=== PATIENT | female | born 1965 | race Caucasian/White ===

== ENCOUNTER 2017-06-15 17:29 | Emergency (ER) | payer OTHER, MEDICAID ==
[2015-12-16 12:38] VITALS: BP 136/65
[~2017-06-15 17:29] MED LIST: ATOR40TA59 PO; BUDE10.22 IH; OMEP20CA9 PO; PROAIR HFA8.5 GM IH
== END 2017-06-15 19:07 | disposition left against medical advice (07) ==
LOC: ER 17:29
DX: R50.9 Fever, unspecified (principal); M79.1 Myalgia; Z53.21 Procedure and treatment not carried out due to patient leaving prior to being seen by health care provider

== ENCOUNTER → 2018-06-05 | Outpatient (CLI) | payer OTHER, MEDICAID | END | disposition home or self-care (01) | LOC: CT 13:36 | DX: Z12.2 Encounter for screening for malignant neoplasm of respiratory organs (principal); I25.10 Atherosclerotic heart disease of native coronary artery without angina pectoris; I70.0 Atherosclerosis of aorta; F17.200 Nicotine dependence, unspecified, uncomplicated; J44.9 Chronic obstructive pulmonary disease, unspecified; E78.00 Pure hypercholesterolemia, unspecified; K21.9 Gastro-esophageal reflux disease without esophagitis; R91.8 Other nonspecific abnormal finding of lung field | CPT/HCPCS: G0297 ==

== ENCOUNTER 2019-03-17 15:02 | Inpatient (IN) | payer OTHER, MEDICAID ==
[~2019-03-17] VITALS: Ht 162.6 cm; Wt 49.0 kg
[~2019-03-17 15:02] MED LIST changes: +ALBU2.5V8 IH; +OMEP20CA10 PO; -OMEP20CA9 PO; -PROAIR HFA8.5 GM IH
[2019-03-17] MEDS ORDERED: IPRATRPIUM/ALBUTEROL 0.5/2.5MG 3 ML NEBU. NEB ONE (15:45)
[2019-03-17] MEDS ORDERED: methylPREDNISolone SOD SUCC PF 125 MG/2 ML VIAL. IV ONE (15:45)
--- NOTE | 2019-03-17 16:03 | EKG ---
[facility] [address] [place] [address] Test Date: 2019-03-17 Test Time: 15:13:13 Pat Name: VICTOR HUGO MADDOX Department: Room: Gender: F Newspaper Editor Managing: : 1965 Requested By: JAYLENE SILVA Order Number: [id number] Reading MD: Micah Martinez MD Measurements Intervals [place] Rate: 70 P: 58 PA: 172 QRS: 65 QRSD: 80 T: 47 QT: 416 QTc: 452 Interpretive Statements SINUS RHYTHM CONSIDER ANTERIOR ISCHEMIA Electronically Signed On 04-11-2019 15:03:59 CDT by Micah Martinez MD
--- NOTE | 2019-03-17 16:08 | PHYS DOC ---
Past Medical History Past Medical History: Asthma, COPD, High Cholesterol (JAYLENE SILVA APRN) Past Surgical History: Tonsillectomy, Other Additional Past Surgical Histo: dental surgery (AJYLENE SILVA APRN) Additional Information: 0.5 PPD Alcohol Use: None Drug Use: None (JAYLENE SILVA APRN) Adult General Chief Complaint Chief Complaint: SHORTNESS OF BREATH HPI HPI Patient is a 53 year old female with history of asthma, COPD, hypertension, current smoker, who presents to the ED today complaining of shortness of breath and coughing for 4-5 days. Patient denies any fever. Denies any chest pain. Patient arrives in the ED with O2 sats at 82% on room air. She states she does not use oxygen at home. PCP Dr. Dumont (JAYLENE SILVA APRN) Review of Systems Review of Systems Constitutional: Denies fever or chills [] Eyes: Denies change in visual acuity, redness, or eye pain [] HENT: Denies nasal congestion or sore throat [] Respiratory: Reports cough and shortness of breath [] Cardiovascular: No additional information not addressed in HPI [] GI: Denies abdominal pain, nausea, vomiting, bloody stools or diarrhea [] : Denies dysuria or hematuria [] Musculoskeletal: Denies back pain or joint pain [] Integument: Denies rash or skin lesions [] Neurologic: Denies headache, focal weakness or sensory changes [] All other systems were reviewed and found to be within normal limits, except as documented in this note. (JAYLENE SILVA APRN) Current Medications Current Medications Current Medications Medications (Trade) Dose Ordered Sig/Jeff Start Time Stop Time Status Last Admin Dose Admin Albuterol/ Ipratropium (Duoneb) 3 ml 1X ONCE 03/17/19 15:45 03/17/19 15:46 DC 03/17/19 15:53 3 ML Methylprednisolone Sodium Succinate (SOLU-Medrol 125MG VIAL) 125 mg 1X ONCE 03/17/19 15:45 03/17/19 15:46 DC 03/17/19 15:50 125 MG (ALYSON FULLER DO) Allergies Allergies Allergies Coded Allergies Type Severity Reaction Last Updated Verified No Known Drug Allergies 12/16/15 No (ALYSON FULLER DO) Physical Exam Physical Exam Constitutional: Cachectic appearing patient, no acute distress, non-toxic appearance. [] HENT: Normocephalic, atraumatic, bilateral external ears normal, oropharynx moist, no oral exudates, nose normal. [] Eyes: PERRLA, EOMI, conjunctiva normal, no discharge. [] Neck: Normal range of motion, no tenderness, supple, no stridor. [] Cardiovascular:Heart rate regular rhythm, no murmur [] Lungs & Thorax: Diminished breath sounds, patient sitting in tripod position, was placed on oxygen on arrival to the ED due to O2 sats being 82% on room air. Abdomen: Bowel sounds normal, soft, no tenderness, no masses, no pulsatile masses. [] Skin: Warm, dry, no erythema, no rash. [] Back: No tenderness, no CVA tenderness. [] Extremities: No tenderness, no cyanosis, no clubbing, ROM intact, no edema. [] Neurologic: Alert and oriented X 3, normal motor function, normal sensory function, no focal deficits noted. [] Psychologic: Affect normal, judgement normal, mood normal. [] (JAYLENE SILVA APRN) Current Patient Data Vital Signs Vital Signs Date Time Temp Pulse Resp B/P (MAP) Pulse Ox O2 Delivery O2 Flow Rate FiO2 03/17/19 17:53 64 27 129/65 (86) 96 Nasal Cannula 2.0 03/17/19 15:05 98.0 98.0 (ALYSON FULLER DO) Lab Values Laboratory Tests Test 03/17/19 15:55 03/17/19 16:30 White Blood Count 8.7 x10^3/uL (4.0-11.0) Red Blood Count 4.71 x10^6/uL (3.50-5.40) Hemoglobin 14.9 g/dL (12.0-15.5) Hematocrit 44.8 % (36.0-47.0) Mean Corpuscular Volume 95 fL (79-100) Mean Corpuscular Hemoglobin 32 pg (25-35) Mean Corpuscular Hemoglobin Concent 33 g/dL (31-37) Red Cell Distribution Width 13.6 % (11.5-14.5) Platelet Count 281 x10^3/uL (140-400) Neutrophils (%) (Auto) 72 % (31-73) Lymphocytes (%) (Auto) 20 % (24-48) L Monocytes (%) (Auto) 6 % (0-9) Eosinophils (%) (Auto) 2 % (0-3) Basophils (%) (Auto) 1 % (0-3) Neutrophils # (Auto) 6.2 x10^3uL (1.8-7.7) Lymphocytes # (Auto) 1.8 x10^3/uL (1.0-4.8) Monocytes # (Auto) 0.5 x10^3/uL (0.0-1.1) Eosinophils # (Auto) 0.2 x10^3/uL (0.0-0.7) Basophils # (Auto) 0.0 x10^3/uL (0.0-0.2) Sodium Level 142 mmol/L (136-145) Potassium Level 3.9 mmol/L (3.5-5.1) Chloride Level 103 mmol/L (98-107) Carbon Dioxide Level 27 mmol/L (21-32) Anion Gap 12 (6-14) Blood Urea Nitrogen 12 mg/dL (7-20) Creatinine 0.8 mg/dL (0.6-1.0) Estimated GFR (Cockcroft-Gault) 74.5 BUN/Creatinine Ratio 15 (6-20) Glucose Level 107 mg/dL (70-99) H Lactic Acid Level 0.8 mmol/L (0.4-2.0) Calcium Level 8.8 mg/dL (8.5-10.1) Magnesium Level 2.0 mg/dL (1.8-2.4) Total Bilirubin 0.4 mg/dL (0.2-1.0) Aspartate Amino Transferase (AST) 23 U/L (15-37) Alanine Aminotransferase (ALT) 28 U/L (14-59) Alkaline Phosphatase 92 U/L (46-116) Creatine Kinase 72 U/L (26-192) Creatine Kinase MB (Mass) 1.4 ng/mL (0.0-3.6) Creatine Kinase MB Relative Index % (0-4) Troponin I Quantitative 0.020 ng/mL (0.000-0.055) DX-Aos-U-Type Natriuretic Peptide 143 pg/mL (0-124) H Total Protein 7.0 g/dL (6.4-8.2) Albumin 3.6 g/dL (3.4-5.0) Albumin/Globulin Ratio 1.1 (1.0-1.7) Thyroid Stimulating Hormone (TSH) 5.393 uIU/mL (0.358-3.74) H Urine Opiates Screen Neg (NEG) Urine Methadone Screen Neg (NEG) Urine Barbiturates Neg (NEG) Urine Phencyclidine Screen Neg (NEG) Urine Amphetamine/Methamphetamine Neg (NEG) Urine Benzodiazepines Screen Neg (NEG) Urine Cocaine Screen Neg (NEG) Urine Cannabinoids Screen Neg (NEG) Urine Ethyl Alcohol Neg (NEG) Laboratory Tests 03/17/19 15:55 Laboratory Tests 03/17/19 15:55 Microbiology 03/17/19 Blood Culture - Preliminary, Resulted NO GROWTH AFTER 1 DAY (ALYSON FULLER DO) Lab Values Laboratory Tests Test 03/17/19 15:55 03/17/19 16:30 White Blood Count 8.7 x10^3/uL (4.0-11.0) Red Blood Count 4.71 x10^6/uL (3.50-5.40) Hemoglobin 14.9 g/dL (12.0-15.5) Hematocrit 44.8 % (36.0-47.0) Mean Corpuscular Volume 95 fL (79-100) Mean Corpuscular Hemoglobin 32 pg (25-35) Mean Corpuscular Hemoglobin Concent 33 g/dL (31-37) Red Cell Distribution Width 13.6 % (11.5-14.5) Platelet Count 281 x10^3/uL (140-400) Neutrophils (%) (Auto) 72 % (31-73) Lymphocytes (%) (Auto) 20 % (24-48) L Monocytes (%) (Auto) 6 % (0-9) Eosinophils (%) (Auto) 2 % (0-3) Basophils (%) (Auto) 1 % (0-3) Neutrophils # (Auto) 6.2 x10^3uL (1.8-7.7) Lymphocytes # (Auto) 1.8 x10^3/uL (1.0-4.8) Monocytes # (Auto) 0.5 x10^3/uL (0.0-1.1) Eosinophils # (Auto) 0.2 x10^3/uL (0.0-0.7) Basophils # (Auto) 0.0 x10^3/uL (0.0-0.2) Sodium Level 142 mmol/L (136-145) Potassium Level 3.9 mmol/L (3.5-5.1) Chloride Level 103 mmol/L (98-107) Carbon Dioxide Level 27 mmol/L (21-32) Anion Gap 12 (6-14) Blood Urea Nitrogen 12 mg/dL (7-20) Creatinine 0.8 mg/dL (0.6-1.0) Estimated GFR (Cockcroft-Gault) 74.5 BUN/Creatinine Ratio 15 (6-20) Glucose Level 107 mg/dL (70-99) H Lactic Acid Level 0.8 mmol/L (0.4-2.0) Calcium Level 8.8 mg/dL (8.5-10.1) Magnesium Level 2.0 mg/dL (1.8-2.4) Total Bilirubin 0.4 mg/dL (0.2-1.0) Aspartate Amino Transferase (AST) 23 U/L (15-37) Alanine Aminotransferase (ALT) 28 U/L (14-59) Alkaline Phosphatase 92 U/L (46-116) Creatine Kinase 72 U/L (26-192) Creatine Kinase MB (Mass) 1.4 ng/mL (0.0-3.6) Creatine Kinase MB Relative Index % (0-4) Troponin I Quantitative 0.020 ng/mL (0.000-0.055) MO-Cio-J-Type Natriuretic Peptide 143 pg/mL (0-124) H Total Protein 7.0 g/dL (6.4-8.2) Albumin 3.6 g/dL (3.4-5.0) Albumin/Globulin Ratio 1.1 (1.0-1.7) Thyroid Stimulating Hormone (TSH) 5.393 uIU/mL (0.358-3.74) H Urine Opiates Screen Neg (NEG) Urine Methadone Screen Neg (NEG) Urine Barbiturates Neg (NEG) Urine Phencyclidine Screen Neg (NEG) Urine Amphetamine/Methamphetamine Neg (NEG) Urine Benzodiazepines Screen Neg (NEG) Urine Cocaine Screen Neg (NEG) Urine Cannabinoids Screen Neg (NEG) Urine Ethyl Alcohol Neg (NEG) Laboratory Tests 03/17/19 15:55 Laboratory Tests 03/17/19 15:55 (JAYLENE SILVA APRN) EKG EKG 15:[address] Fuller sinus rhythm HR 70 no STEMI[] (JAYLENE SILVA APRN) Radiology/Procedures Radiology/Procedures []PROCEDURE: PORTABLE CHEST 1V AP portable chest radiograph 03/17/2019 Clinical History: Shortness of breath and cough. An AP erect portable digital radiograph of the chest was obtained. The cardiac silhouette is normal in size. Atherosclerotic calcification of the thoracic aorta is seen. The thoracic aorta is minimally tortuous. No acute pulmonary infiltrate is noted. No pneumothorax or pleural effusion is seen. Degenerative changes are seen involving the thoracic spine. IMPRESSION: No acute abnormality is seen. Electronically signed by: Jan Barber MD (03/17/2019 4:43 PM) [facility] DICTATED and SIGNED BY: JAN BARBER MD DATE: 03/17/191642 (JAYLENE SILVA APRN) Course & Med Decision Making Course & Med Decision Making Pertinent Labs and Imaging studies reviewed. (See chart for details) This is a 53-year-old female patient presenting to the ED today with cough or shortness of breath for 4-5 days. Patient has history of COPD and is a current smoker. On arrival to the ED she was hypoxic with O2 sats at 82% on room air, she was placed on oxygen 2 L, O2 sats 95% on room air. She was given a DuoNeb treatment as well. Given Solu-Medrol, feeling better, unfortunately her O2 sats remained below 90% on room air. Her labs are negative, chest x-ray is negative, EKG is negative, Consulted with Dr. Suzy Dumont who accepted patient for admission Routine consult placed for wallcovering hanger considering her hypoxia. Encouraged patient to consider smoking cessation (JAYLENE SILVA APRN) Dragon Disclaimer Dragon Disclaimer This electronic medical record was generated, in whole or in part, using a voice recognition dictation system. (JAYLENE SILVA APRN) Departure Departure Impression: Primary Impression: COPD exacerbation Additional Impressions: Smoking addiction Hypoxia Disposition: ADMITTED INPATIENT Condition: STABLE Referrals: SUZY DUMONT MD (PCP) Attending Signature Attending Signature I have reviewed the PA/FLOUR MIXER's note and plan of care. I was available for consultation as needed during the patient's visit in the emergency department. I agree with the clinical impression, plan, and disposition. (ALYSON FULLER DO) Problem Qualifiers JAYLENE SILVA BANKER MASON March 17, 2019 16:08 ALYSON FULLER DO March 19, 2019 01:52
[2019-03-17 16:14] LABS: BASO % 1 % (0-3); EOS # 0.2 x10^3/uL (0.0-0.7); EOS % 2 % (0-3); HEMATOCRIT 44.8 % (36.0-47.0); HEMOGLOBIN 14.9 g/dL (12.0-15.5); LYMPH # 1.8 x10^3/uL (1.0-4.8); LYMPH % 20 % (24-48); MEAN CORPUSCULAR HEMOGLOBIN 32 pg (25-35); MEAN CORPUSCULAR HGB CONC 33 g/dL (31-37); MEAN CORPUSCULAR VOLUME 95 fL (79-100); MONO # 0.5 x10^3/uL (0.0-1.1); MONO % 6 % (0-9); NEUT # 6.2 x10^3uL (1.8-7.7); NEUT % 72 % (31-73); PLATELET COUNT 281 x10^3/uL (140-400); RED BLOOD COUNT 4.71 x10^6/uL (3.50-5.40); RED CELL DISTRIBUTION WIDTH 13.6 % (11.5-14.5); WHITE BLOOD COUNT 8.7 x10^3/uL (4.0-11.0)
[2019-03-17 16:25] LABS: CALCIUM 8.8 mg/dL (8.5-10.1); CREATININE 0.8 mg/dL (0.6-1.0); GFR 74.5; POTASSIUM 3.9 mmol/L (3.5-5.1)
[2019-03-17 16:38] LABS: CREATINE KINASE 72 U/L (26-192)
[2019-03-17 16:39] LABS: ALBUMIN 3.6 g/dL (3.4-5.0); ALBUMIN/GLOBULIN RATIO 1.1 (1.0-1.7); TOTAL BILIRUBIN 0.4 mg/dL (0.2-1.0)
--- NOTE | 2019-03-17 16:45 | RAD ---
AP portable chest radiograph 03/17/2019 Clinical History: Shortness of breath and cough. An AP erect portable digital radiograph of the chest was obtained. The cardiac silhouette is normal in size. Atherosclerotic calcification of the thoracic aorta is seen. The thoracic aorta is minimally tortuous. No acute pulmonary infiltrate is noted. No pneumothorax or pleural effusion is seen. Degenerative changes are seen involving the thoracic spine. IMPRESSION: No acute abnormality is seen. Electronically signed by: Jan Barber MD (03/17/2019 4:43 PM) [facility]
[2019-03-17 16:47] LABS: BARBITURATES NEG (NEG); BENZODIAZEPINES NEG (NEG); CANNABINOIDS NEG (NEG); COCAINE NEG (NEG); METHADONE NEG (NEG); OPIATES NEG (NEG); PHENCYCLIDINE NEG (NEG)
[2019-03-17 16:48] LABS: AMPHETAMINE/METHAMPHETAMINE NEG (NEG)
[2019-03-17] MEDS ORDERED: ONDANSETRON PF 4 MG/2 ML VIAL. IV PRN (18:30)
[2019-03-17] MEDS ORDERED: MORPHINE SULFATE 2 MG/ML VIAL. IV PRN (18:30)
--- NOTE | 2019-03-17 19:00 | NUR ---
The patient, VICTOR HUGO MADDOX, 53 y/o, F admitted by SUZY DUMONT MD, was given written information regarding hospital policies, unit procedures and contact persons. Valuables were checked and left in the room.
[2019-03-17 19:30] VITALS: BP 123/66
[2019-03-17] MEDS ORDERED: IPRATRPIUM/ALBUTEROL 0.5/2.5MG 3 ML NEBU. NEB SCH (20:00)
[2019-03-17] MEDS: methylPREDNISolone SOD SUCC PF 40 MG/ML VIAL. IV SCH (21:31)
[2019-03-17] MEDS: ACETAMINOPHEN 325 MG TABLET. PO PRN (21:31)
[2019-03-17 23:00] VITALS: BP 102/46
[2019-03-18 03:02] VITALS: BP 124/63
[2019-03-18 05:11] LABS: BASO % 0 % (0-3); EOS % 0 % (0-3); HEMATOCRIT 42.9 % (36.0-47.0); HEMOGLOBIN 14.4 g/dL (12.0-15.5); LYMPH # 0.5 x10^3/uL (1.0-4.8); LYMPH % 12 % (24-48); MEAN CORPUSCULAR HEMOGLOBIN 32 pg (25-35); MEAN CORPUSCULAR HGB CONC 34 g/dL (31-37); MEAN CORPUSCULAR VOLUME 95 fL (79-100); MONO % 1 % (0-9); NEUT # 3.7 x10^3uL (1.8-7.7); NEUT % 87 % (31-73); PLATELET COUNT 284 x10^3/uL (140-400); RED BLOOD COUNT 4.53 x10^6/uL (3.50-5.40); RED CELL DISTRIBUTION WIDTH 13.7 % (11.5-14.5); WHITE BLOOD COUNT 4.2 x10^3/uL (4.0-11.0)
[2019-03-18 05:43] LABS: CALCIUM 8.7 mg/dL (8.5-10.1); CREATININE 0.8 mg/dL (0.6-1.0); GFR 74.5; POTASSIUM 4.1 mmol/L (3.5-5.1)
[2019-03-18 07:00] VITALS: BP 119/63
[2019-03-18] MEDS: ACETAMINOPHEN 325 MG TABLET. PO PRN ×3 (07:24→21:26)
[2019-03-18] MEDS: IPRATRPIUM/ALBUTEROL 0.5/2.5MG 3 ML NEBU. NEB SCH ×4 (07:46→19:32)
[2019-03-18 07:51] LABS: % LYMPHS 11 % (24-48); % MONOS 1 % (0-10); % SEGS 88 % (35-66)
[2019-03-18 07:52] LABS: PLT ESTIMATE ADEQUATE (ADEQUATE)
--- NOTE | 2019-03-18 08:33 | PDOC ---
Provider Note Provider Note [id number] SUZY DUMONT MD March 18, 2019 08:33
--- NOTE | 2019-03-18 08:48 | HP ---
ADMIT DATE: 03/17/2019 CHIEF COMPLAINT: Dyspnea and productive cough. HISTORY OF PRESENT ILLNESS: A 53-year-old white female who has had COPD for a number of years and uses Advair and Incruse at home. She is not on oxygen at home. She had increasing shortness of breath with some clear and green sputum production and came to the ER. X-ray was clear. Labs were normal, and she is feeling better on oxygen and IV steroids at this point. MEDICATIONS: She takes atorvastatin along with Incruse and Advair. ALLERGIES: No allergies. No cardiovascular history of any type. PAST SURGICAL HISTORY: She has had a tonsillectomy. SOCIAL HISTORY: She has smoked most of her adult life. She lives with her niece. She is not employed. States she is a nondrinker. FAMILY HISTORY: Unremarkable. Both parents are . REVIEW OF SYSTEMS: Unremarkable. OBJECTIVE: ENT: Unremarkable. NECK: No masses, nodes or bruits. LUNGS: Decreased breath sounds, diffuse scattered expiratory wheezes. No tachypnea. CARDIOVASCULAR: Regular rate. No tachycardia. ABDOMEN: Obese, soft and nontender. EXTREMITIES: Unremarkable except for reduced pedal pulses bilaterally. Nail beds are slightly clogged and mildly cyanotic. NEUROLOGIC: Physiologic and nonfocal. ASSESSMENT: Chronic obstructive pulmonary disease with chronic tobacco abuse and acute exacerbation. She has some sort of genetic developmental delay present as well. PLAN: We will add Nicoderm patch to current regimen of DuoNeb and IV steroids. Sputum culture to be obtained and then assessment for need of home oxygen as well. SUZY DUMONT MD DR: NOLBERTO/nts JOB#: [id number] / [id number]
[2019-03-18] MEDS: NICOTINE 14MG PATCH. TD SCH (08:50)
[2019-03-18] MEDS: ATORVASTATIN CALCIUM 40 MG TABLET. PO SCH (08:50)
[2019-03-18] MEDS: FAMOTIDINE 20 MG TABLET. PO SCH ×2 (08:50→21:22)
[2019-03-18] MEDS: methylPREDNISolone SOD SUCC PF 40 MG/ML VIAL. IV SCH ×2 (08:53→21:23)
[2019-03-18 10:57] VITALS: BP 122/52
[2019-03-18 15:00] VITALS: BP 119/52
--- NOTE | 2019-03-18 15:01 | NUR ---
SW following pt for anticipated dc needs. Chart reviewed. Pt lives at home with family. No dc recommendation or SW needs noted at this time. Will continue to follow.
--- NOTE | 2019-03-18 16:42 | PDOC ---
PULMONARY PROGRESS NOTES Vitals Vital Signs Date Time Temp Pulse Resp B/P (MAP) Pulse Ox O2 Delivery O2 Flow Rate FiO2 03/18/19 15:38 90 Nasal Cannula 2.0 03/18/19 15:00 97.6 79 16 119/52 (74) 97.6 Labs Laboratory Tests Test 03/17/19 15:55 03/17/19 16:30 03/18/19 04:05 White Blood Count 8.7 x10^3/uL (4.0-11.0) 4.2 x10^3/uL (4.0-11.0) Red Blood Count 4.71 x10^6/uL (3.50-5.40) 4.53 x10^6/uL (3.50-5.40) Hemoglobin 14.9 g/dL (12.0-15.5) 14.4 g/dL (12.0-15.5) Hematocrit 44.8 % (36.0-47.0) 42.9 % (36.0-47.0) Mean Corpuscular Volume 95 fL (79-100) 95 fL (79-100) Mean Corpuscular Hemoglobin 32 pg (25-35) 32 pg (25-35) Mean Corpuscular Hemoglobin Concent 33 g/dL (31-37) 34 g/dL (31-37) Red Cell Distribution Width 13.6 % (11.5-14.5) 13.7 % (11.5-14.5) Platelet Count 281 x10^3/uL (140-400) 284 x10^3/uL (140-400) Neutrophils (%) (Auto) 72 % (31-73) 87 % (31-73) Lymphocytes (%) (Auto) 20 % (24-48) 12 % (24-48) Monocytes (%) (Auto) 6 % (0-9) 1 % (0-9) Eosinophils (%) (Auto) 2 % (0-3) 0 % (0-3) Basophils (%) (Auto) 1 % (0-3) 0 % (0-3) Neutrophils # (Auto) 6.2 x10^3uL (1.8-7.7) 3.7 x10^3uL (1.8-7.7) Lymphocytes # (Auto) 1.8 x10^3/uL (1.0-4.8) 0.5 x10^3/uL (1.0-4.8) Monocytes # (Auto) 0.5 x10^3/uL (0.0-1.1) 0.0 x10^3/uL (0.0-1.1) Eosinophils # (Auto) 0.2 x10^3/uL (0.0-0.7) 0.0 x10^3/uL (0.0-0.7) Basophils # (Auto) 0.0 x10^3/uL (0.0-0.2) 0.0 x10^3/uL (0.0-0.2) Sodium Level 142 mmol/L (136-145) 139 mmol/L (136-145) Potassium Level 3.9 mmol/L (3.5-5.1) 4.1 mmol/L (3.5-5.1) Chloride Level 103 mmol/L (98-107) 103 mmol/L (98-107) Carbon Dioxide Level 27 mmol/L (21-32) 27 mmol/L (21-32) Anion Gap 12 (6-14) 9 (6-14) Blood Urea Nitrogen 12 mg/dL (7-20) 17 mg/dL (7-20) Creatinine 0.8 mg/dL (0.6-1.0) 0.8 mg/dL (0.6-1.0) Estimated GFR (Cockcroft-Gault) 74.5 74.5 BUN/Creatinine Ratio 15 (6-20) Glucose Level 107 mg/dL (70-99) 145 mg/dL (70-99) Lactic Acid Level 0.8 mmol/L (0.4-2.0) Calcium Level 8.8 mg/dL (8.5-10.1) 8.7 mg/dL (8.5-10.1) Magnesium Level 2.0 mg/dL (1.8-2.4) Total Bilirubin 0.4 mg/dL (0.2-1.0) Aspartate Amino Transf (AST/SGOT) 23 U/L (15-37) Alanine Aminotransferase (ALT/SGPT) 28 U/L (14-59) Alkaline Phosphatase 92 U/L (46-116) Creatine Kinase 72 U/L (26-192) Creatine Kinase MB (Mass) 1.4 ng/mL (0.0-3.6) Creatine Kinase MB Relative Index % (0-4) Troponin I Quantitative 0.020 ng/mL (0.000-0.055) LD-Xpn-A-Type Natriuretic Peptide 143 pg/mL (0-124) Total Protein 7.0 g/dL (6.4-8.2) Albumin 3.6 g/dL (3.4-5.0) Albumin/Globulin Ratio 1.1 (1.0-1.7) Thyroid Stimulating Hormone (TSH) 5.393 uIU/mL (0.358-3.74) Urine Opiates Screen Neg (NEG) Urine Methadone Screen Neg (NEG) Urine Barbiturates Neg (NEG) Urine Phencyclidine Screen Neg (NEG) Urine Amphetamine/Methamphetamine Neg (NEG) Urine Benzodiazepines Screen Neg (NEG) Urine Cocaine Screen Neg (NEG) Urine Cannabinoids Screen Neg (NEG) Urine Ethyl Alcohol Neg (NEG) Segmented Neutrophils % 88 % (35-66) Lymphocytes % 11 % (24-48) Monocytes % 1 % (0-10) Platelet Estimate Adequate (ADEQUATE) Laboratory Tests Test 03/18/19 04:05 White Blood Count 4.2 x10^3/uL (4.0-11.0) Red Blood Count 4.53 x10^6/uL (3.50-5.40) Hemoglobin 14.4 g/dL (12.0-15.5) Hematocrit 42.9 % (36.0-47.0) Mean Corpuscular Volume 95 fL (79-100) Mean Corpuscular Hemoglobin 32 pg (25-35) Mean Corpuscular Hemoglobin Concent 34 g/dL (31-37) Red Cell Distribution Width 13.7 % (11.5-14.5) Platelet Count 284 x10^3/uL (140-400) Neutrophils (%) (Auto) 87 % (31-73) Lymphocytes (%) (Auto) 12 % (24-48) Monocytes (%) (Auto) 1 % (0-9) Eosinophils (%) (Auto) 0 % (0-3) Basophils (%) (Auto) 0 % (0-3) Neutrophils # (Auto) 3.7 x10^3uL (1.8-7.7) Lymphocytes # (Auto) 0.5 x10^3/uL (1.0-4.8) Monocytes # (Auto) 0.0 x10^3/uL (0.0-1.1) Eosinophils # (Auto) 0.0 x10^3/uL (0.0-0.7) Basophils # (Auto) 0.0 x10^3/uL (0.0-0.2) Segmented Neutrophils % 88 % (35-66) Lymphocytes % 11 % (24-48) Monocytes % 1 % (0-10) Platelet Estimate Adequate (ADEQUATE) Sodium Level 139 mmol/L (136-145) Potassium Level 4.1 mmol/L (3.5-5.1) Chloride Level 103 mmol/L (98-107) Carbon Dioxide Level 27 mmol/L (21-32) Anion Gap 9 (6-14) Blood Urea Nitrogen 17 mg/dL (7-20) Creatinine 0.8 mg/dL (0.6-1.0) Estimated GFR (Cockcroft-Gault) 74.5 Glucose Level 145 mg/dL (70-99) Calcium Level 8.7 mg/dL (8.5-10.1) Medications Active Scripts Medications Dose Route/Sig Max Daily Dose Days Date Category Symbicort 80-4.5 Mcg Inhaler (Budesonide/Formoterol Fumarate) 10.2 Gm Hfa.aer.ad 2 Puff IH BID 07/22/15 Reported Proair Hfa Inhaler (Albuterol Sulfate) 8.5 Gm Hfa.aer.ad 2 Puff IH PRN Q4-6HRS 07/22/15 Reported Atorvastatin Calcium 40 Mg Tablet 1 Tab PO DAILY 07/22/15 Reported Impression . dictated aecopd hypoxemia agree with current rx thanks EDNA AMAYA MD March 18, 2019 16:42
[2019-03-18 19:00] VITALS: BP 105/56
[2019-03-18] MEDS: DOXYCYCLINE HYCLATE 100 MG TABLET PO SCH (21:22)
[2019-03-18] MEDS: HEPARIN for SUB-Q USE 5,000 UNIT/ML VIAL. SQ SCH (21:29)
[2019-03-18 22:59] VITALS: BP 119/64
--- NOTE | 2019-03-19 02:33 | CONS ---
DATE OF CONSULTATION: 03/18/2019 ATTENDING PHYSICIAN: Cosmo Garcia M.D. CONSULTING PHYSICIAN: Edna Amaya M.D. REASON FOR CONSULTATION: The patient is seen in Pulmonary consultation at the request of Dr. Garcia for acute respiratory distress. HISTORY OF PRESENT ILLNESS: The patient is a 53-year-old with a history of COPD, questionable asthma component, hypertension and current smoker, who presented with increasing shortness of breath over the last 2-3 days, coughing up some green sputum. She was unable to complete full sentences at times. She presented to the Emergency Room Department and found to have new O2 saturation of 82% on room air. She was admitted and I was asked to see her in consultation. She does not wear oxygen at home. PAST MEDICAL HISTORY: Tobacco dependence, COPD, questionable asthma component, hyperlipidemia and tonsillectomy. PAST SURGICAL HISTORY: Previous dental surgery. REVIEW OF SYSTEMS: CONSTITUTIONAL: No fever or chills. EYES: No change in visual acuity. HENT: No nasal congestion or sore throat. PULMONARY: As indicated above. CARDIOVASCULAR: No chest pain or pressure. GASTROINTESTINAL: No nausea, vomiting or diarrhea. GENITOURINARY: No dysuria or frequency. MUSCULOSKELETAL: No localized muscle aches or joint pains. SKIN: No new skin lesions. NEUROLOGIC: No headaches, diplopia or blurred vision. FAMILY HISTORY: No family history of early emphysema or lung cancer. SOCIAL HISTORY: Socially, she smokes. Denies any excessive alcohol intake. MEDICATIONS: Home medication list was reviewed. She utilizes Advair and Incruse. PHYSICAL EXAMINATION: VITAL SIGNS: On examination, room air saturation was 82%, currently on 2 liters. HEENT: Eyes, the sclerae were nonicteric. NECK: Jugular venous distention was not elevated. No lymphadenopathy. CHEST: Full expansion. LUNGS: Poor airway flow with expiratory wheeze, some scattered rhonchi. CARDIOVASCULAR EXAMINATION: Regular rate and rhythm with S1, S2. No S3. ABDOMEN: Soft, nontender and nondistended. EXTREMITIES: No clubbing, cyanosis or pitting edema. NEUROLOGIC: The patient was awake, alert, following commands. A detailed neuro exam was not performed. LABORATORY DATA: White count was normal. Hemoglobin and hematocrit were noted. Electrolytes were noted. TSH was elevated. Toxicology screen was negative. Chest x-ray was reviewed, hyperinflation, no acute infiltrates. IMPRESSION: 1. Acute hypoxemic respiratory failure. The patient found to have O2 sat on room air of 82%. 2. Acute exacerbation of chronic obstructive pulmonary disease. 3. Tobacco dependent. 4. Hyperlipidemia. PLAN: 1. The patient admitted with supplemental oxygen. O2 saturation on room air was 82%. The patient was having difficulty completing full sentences. 2. Continue steroids. 3. Add doxycycline for acute nonspecific bronchitis. 4. Nebulized treatments. 5. DVT prophylaxis. 6. The patient instructed on the importance of discontinuing tobacco use. 7. A 6-minute walk prior to discharge. I do appreciate the privilege in sharing in the patient's care. EDNA AMAYA MD DR: JANEEN/thanh JOB#: [id number] / [id number]
[2019-03-19 02:41] VITALS: BP 128/72
[2019-03-19] MEDS: HEPARIN for SUB-Q USE 5,000 UNIT/ML VIAL. SQ SCH ×3 (06:20→20:38)
[2019-03-19 07:00] VITALS: BP 119/64
--- NOTE | 2019-03-19 08:22 | PDOC ---
Provider Note Provider Note feels better, no temp, still diffuse exp wheezes- labs ok, sputum cult pending- cont iv steroids/duoneb- NEEDS TO BE IN HOSPITAL SUZY DUMONT MD March 19, 2019 08:22
[2019-03-19] MEDS: IPRATRPIUM/ALBUTEROL 0.5/2.5MG 3 ML NEBU. NEB SCH ×4 (08:39→21:00)
[2019-03-19] MEDS: ATORVASTATIN CALCIUM 40 MG TABLET. PO SCH (09:18)
[2019-03-19] MEDS: FAMOTIDINE 20 MG TABLET. PO SCH ×2 (09:18→20:30)
[2019-03-19] MEDS: methylPREDNISolone SOD SUCC PF 40 MG/ML VIAL. IV SCH ×2 (09:19→20:29)
[2019-03-19] MEDS: NICOTINE 14MG PATCH. TD SCH (09:22)
[2019-03-19] MEDS: DOXYCYCLINE HYCLATE 100 MG TABLET PO SCH ×2 (09:22→20:30)
[2019-03-19] MEDS: ACETAMINOPHEN 325 MG TABLET. PO PRN ×2 (09:27→22:14)
[2019-03-19 10:46] VITALS: BP 101/48
[2019-03-19] MEDS ORDERED: ONDANSETRON PF 4 MG/2 ML VIAL. ONE (12:57)
--- NOTE | 2019-03-19 13:57 | PDOC ---
PULMONARY PROGRESS NOTES Subjective LESS SOA Vitals Vital Signs Date Time Temp Pulse Resp B/P (MAP) Pulse Ox O2 Delivery O2 Flow Rate FiO2 03/19/19 12:50 93 Nasal Cannula 2.0 03/19/19 10:46 97.5 73 18 101/48 (65) 97.5 General: Alert, No acute distress Lungs: Clear Cardiovascular: S1 Abdomen: Soft Neuro Exam: Alert Extremities: No Edema Skin: Warm Labs Laboratory Tests Test 03/17/19 15:55 03/17/19 16:30 03/18/19 04:05 White Blood Count 8.7 x10^3/uL (4.0-11.0) 4.2 x10^3/uL (4.0-11.0) Red Blood Count 4.71 x10^6/uL (3.50-5.40) 4.53 x10^6/uL (3.50-5.40) Hemoglobin 14.9 g/dL (12.0-15.5) 14.4 g/dL (12.0-15.5) Hematocrit 44.8 % (36.0-47.0) 42.9 % (36.0-47.0) Mean Corpuscular Volume 95 fL (79-100) 95 fL (79-100) Mean Corpuscular Hemoglobin 32 pg (25-35) 32 pg (25-35) Mean Corpuscular Hemoglobin Concent 33 g/dL (31-37) 34 g/dL (31-37) Red Cell Distribution Width 13.6 % (11.5-14.5) 13.7 % (11.5-14.5) Platelet Count 281 x10^3/uL (140-400) 284 x10^3/uL (140-400) Neutrophils (%) (Auto) 72 % (31-73) 87 % (31-73) Lymphocytes (%) (Auto) 20 % (24-48) 12 % (24-48) Monocytes (%) (Auto) 6 % (0-9) 1 % (0-9) Eosinophils (%) (Auto) 2 % (0-3) 0 % (0-3) Basophils (%) (Auto) 1 % (0-3) 0 % (0-3) Neutrophils # (Auto) 6.2 x10^3uL (1.8-7.7) 3.7 x10^3uL (1.8-7.7) Lymphocytes # (Auto) 1.8 x10^3/uL (1.0-4.8) 0.5 x10^3/uL (1.0-4.8) Monocytes # (Auto) 0.5 x10^3/uL (0.0-1.1) 0.0 x10^3/uL (0.0-1.1) Eosinophils # (Auto) 0.2 x10^3/uL (0.0-0.7) 0.0 x10^3/uL (0.0-0.7) Basophils # (Auto) 0.0 x10^3/uL (0.0-0.2) 0.0 x10^3/uL (0.0-0.2) Sodium Level 142 mmol/L (136-145) 139 mmol/L (136-145) Potassium Level 3.9 mmol/L (3.5-5.1) 4.1 mmol/L (3.5-5.1) Chloride Level 103 mmol/L (98-107) 103 mmol/L (98-107) Carbon Dioxide Level 27 mmol/L (21-32) 27 mmol/L (21-32) Anion Gap 12 (6-14) 9 (6-14) Blood Urea Nitrogen 12 mg/dL (7-20) 17 mg/dL (7-20) Creatinine 0.8 mg/dL (0.6-1.0) 0.8 mg/dL (0.6-1.0) Estimated GFR (Cockcroft-Gault) 74.5 74.5 BUN/Creatinine Ratio 15 (6-20) Glucose Level 107 mg/dL (70-99) 145 mg/dL (70-99) Lactic Acid Level 0.8 mmol/L (0.4-2.0) Calcium Level 8.8 mg/dL (8.5-10.1) 8.7 mg/dL (8.5-10.1) Magnesium Level 2.0 mg/dL (1.8-2.4) Total Bilirubin 0.4 mg/dL (0.2-1.0) Aspartate Amino Transf (AST/SGOT) 23 U/L (15-37) Alanine Aminotransferase (ALT/SGPT) 28 U/L (14-59) Alkaline Phosphatase 92 U/L (46-116) Creatine Kinase 72 U/L (26-192) Creatine Kinase MB (Mass) 1.4 ng/mL (0.0-3.6) Creatine Kinase MB Relative Index % (0-4) Troponin I Quantitative 0.020 ng/mL (0.000-0.055) ZE-Hpi-J-Type Natriuretic Peptide 143 pg/mL (0-124) Total Protein 7.0 g/dL (6.4-8.2) Albumin 3.6 g/dL (3.4-5.0) Albumin/Globulin Ratio 1.1 (1.0-1.7) Thyroid Stimulating Hormone (TSH) 5.393 uIU/mL (0.358-3.74) Urine Opiates Screen Neg (NEG) Urine Methadone Screen Neg (NEG) Urine Barbiturates Neg (NEG) Urine Phencyclidine Screen Neg (NEG) Urine Amphetamine/Methamphetamine Neg (NEG) Urine Benzodiazepines Screen Neg (NEG) Urine Cocaine Screen Neg (NEG) Urine Cannabinoids Screen Neg (NEG) Urine Ethyl Alcohol Neg (NEG) Segmented Neutrophils % 88 % (35-66) Lymphocytes % 11 % (24-48) Monocytes % 1 % (0-10) Platelet Estimate Adequate (ADEQUATE) Medications Active Scripts Medications Dose Route/Sig Max Daily Dose Days Date Category Symbicort 80-4.5 Mcg Inhaler (Budesonide/Formoterol Fumarate) 10.2 Gm Hfa.aer.ad 2 Puff IH BID 07/22/15 Reported Proair Hfa Inhaler (Albuterol Sulfate) 8.5 Gm Hfa.aer.ad 2 Puff IH PRN Q4-6HRS 07/22/15 Reported Atorvastatin Calcium 40 Mg Tablet 1 Tab PO DAILY 07/22/15 Reported Impression . 1. Acute hypoxemic respiratory failure. The patient found to have O2 sat on room air of 82%. 2. Acute exacerbation of chronic obstructive pulmonary disease. 3. Tobacco dependent. 4. Hyperlipidemia. 5. clear cxr Plan . 1. better, on o2 2. Continue steroids. 3. doxycycline for acute nonspecific bronchitis. 4. Nebulized treatments. 5. DVT prophylaxis. 6. The patient instructed on the importance of discontinuing tobacco use. 7. A 6-minute walk prior to discharge. possible dc in MARTHA Borjas MD March 19, 2019 13:57
[2019-03-19 14:48] VITALS: BP 103/59
[2019-03-19 19:00] VITALS: BP 134/59
[2019-03-19] MEDS: LACTOBACILLUS RHAMNOSUS GG 1 CAPSULE. PO SCH (20:30)
[2019-03-19 23:00] VITALS: BP 138/67
[2019-03-20 02:45] VITALS: BP 121/61
[2019-03-20] MEDS: HEPARIN for SUB-Q USE 5,000 UNIT/ML VIAL. SQ SCH (05:44)
[2019-03-20 07:00] VITALS: BP 129/68
[2019-03-20] MEDS: IPRATRPIUM/ALBUTEROL 0.5/2.5MG 3 ML NEBU. NEB SCH ×3 (07:24→15:31)
[2019-03-20] MEDS: ACETAMINOPHEN 325 MG TABLET. PO PRN ×2 (07:34→19:49)
--- NOTE | 2019-03-20 08:44 | PDOC ---
Provider Note Provider Note no temp, O2 ok- still wheezing but better- sputum shows wbc/gram + cocci, cont doxy- now po pred, 6 min walk, likely dc in am , will need nebulizer also to go w/ SUZY Wang MD March 20, 2019 08:44
[2019-03-20] MEDS: DOXYCYCLINE HYCLATE 100 MG TABLET PO SCH ×2 (08:53→21:20)
[2019-03-20] MEDS: LACTOBACILLUS RHAMNOSUS GG 1 CAPSULE. PO SCH ×2 (08:53→21:20)
[2019-03-20] MEDS: ATORVASTATIN CALCIUM 40 MG TABLET. PO SCH (08:53)
[2019-03-20] MEDS: FAMOTIDINE 20 MG TABLET. PO SCH ×2 (08:53→21:20)
[2019-03-20] MEDS: predniSONE 20 MG TABLET PO SCH (08:57)
[2019-03-20] MEDS: NICOTINE 14MG PATCH. TD SCH (08:57)
--- NOTE | 2019-03-20 10:16 | PDOC ---
PULMONARY PROGRESS NOTES Subjective LESS SOA Vitals Vital Signs Date Time Temp Pulse Resp B/P (MAP) Pulse Ox O2 Delivery O2 Flow Rate FiO2 03/20/19 07:25 95 Nasal Cannula 2.0 03/20/19 07:00 97.5 72 16 129/68 (88) 97.5 General: Alert, No acute distress Lungs: Clear Cardiovascular: S1 Abdomen: Soft Neuro Exam: Alert Extremities: No Edema Skin: Warm Medications Active Scripts Medications Dose Route/Sig Max Daily Dose Days Date Category Symbicort 80-4.5 Mcg Inhaler (Budesonide/Formoterol Fumarate) 10.2 Gm Hfa.aer.ad 2 Puff IH BID 07/22/15 Reported Proair Hfa Inhaler (Albuterol Sulfate) 8.5 Gm Hfa.aer.ad 2 Puff IH PRN Q4-6HRS 07/22/15 Reported Atorvastatin Calcium 40 Mg Tablet 1 Tab PO DAILY 07/22/15 Reported Impression . 1. Acute hypoxemic respiratory failure. The patient found to have O2 sat on room air of 82%. 2. Acute exacerbation of chronic obstructive pulmonary disease. 3. Tobacco dependent. 4. Hyperlipidemia. 5. clear cxr Plan . 1. better, on o2 2. Continue steroids. 3. doxycycline for acute nonspecific bronchitis. 4. Nebulized treatments. 5. DVT prophylaxis. 6. The patient instructed on the importance of discontinuing tobacco use. 7. A 6-minute walk done. needs 2 litres at rest, 4 litres with exercise possible dc in MARTHA Borjas MD March 20, 2019 10:16
[2019-03-20 11:00] VITALS: BP 137/66
[2019-03-20 15:00] VITALS: BP 134/56
--- NOTE | 2019-03-20 15:03 | NUR ---
SW following pt. Pt needs home 02 and nebulizer. SW will need Rx to set up home 02 and nebulizer. RN notified.
[2019-03-20 19:00] VITALS: BP 114/62
[2019-03-20 23:00] VITALS: BP 117/57
[2019-03-21 03:00] VITALS: BP 117/63
[2019-03-21 07:00] VITALS: BP 127/62
[2019-03-21] MEDS: IPRATRPIUM/ALBUTEROL 0.5/2.5MG 3 ML NEBU. NEB SCH ×2 (07:31→11:26)
--- NOTE | 2019-03-21 07:59 | PDOC ---
Provider Note Provider Note [id number] SUZY DUMONT MD March 21, 2019 07:59
[2019-03-21] MEDS: predniSONE 20 MG TABLET PO SCH (09:24)
[2019-03-21] MEDS: FAMOTIDINE 20 MG TABLET. PO SCH (09:24)
[2019-03-21] MEDS: ACETAMINOPHEN 325 MG TABLET. PO PRN (09:24)
[2019-03-21] MEDS: ATORVASTATIN CALCIUM 40 MG TABLET. PO SCH (09:25)
[2019-03-21] MEDS: LACTOBACILLUS RHAMNOSUS GG 1 CAPSULE. PO SCH (09:25)
[2019-03-21] MEDS: DOXYCYCLINE HYCLATE 100 MG TABLET PO SCH (09:25)
[2019-03-21] MEDS: NICOTINE 14MG PATCH. TD SCH (09:26)
[2019-03-21 11:00] VITALS: BP 109/43
--- NOTE | 2019-03-21 12:00 | NUR ---
TIANNA faxed orders for home 02 and Nebulizer to [facility]. Orders approved and TIANNA provided pt to with a tank to take home. TIANNA also informed pt to call [facility] while leaving [facility] so they can provide her with 02 concentrator and nebulizer. Pt aware to brick picker medication for nebulizer from her Pharmacy. TIANNA also reminded Pt to follow up with Dr. Lomeli in 2-4 weeks. Pt stated she has a ride to take her home. RN notified.
--- NOTE | 2019-03-21 12:38 | PDOC ---
PULMONARY PROGRESS NOTES Subjective LESS SOA Vitals Vital Signs Date Time Temp Pulse Resp B/P (MAP) Pulse Ox O2 Delivery O2 Flow Rate FiO2 03/21/19 11:26 Nasal Cannula 2.0 03/21/19 11:00 97.5 62 17 109/43 (65) 96 97.5 General: Alert, No acute distress Lungs: Clear Cardiovascular: S1 Abdomen: Soft Neuro Exam: Alert Extremities: No Edema Skin: Warm Medications Active Scripts Medications Dose Route/Sig Max Daily Dose Days Date Category Symbicort 80-4.5 Mcg Inhaler (Budesonide/Formoterol Fumarate) 10.2 Gm Hfa.aer.ad 2 Puff IH BID 07/22/15 Reported Proair Hfa Inhaler (Albuterol Sulfate) 8.5 Gm Hfa.aer.ad 2 Puff IH PRN Q4-6HRS 07/22/15 Reported Atorvastatin Calcium 40 Mg Tablet 1 Tab PO DAILY 07/22/15 Reported Impression . 1. Acute hypoxemic respiratory failure. The patient found to have O2 sat on room air of 82%. 2. Acute exacerbation of chronic obstructive pulmonary disease. 3. Tobacco dependent. 4. Hyperlipidemia. 5. clear cxr Plan . 1. better, on o2 2. Continue steroids. 3. doxycycline for acute nonspecific bronchitis. 4. Nebulized treatments. 5. DVT prophylaxis. 6. The patient instructed on the importance of discontinuing tobacco use. 7. A 6-minute walk done. needs 2 litres at rest, 4 litres with exercise [facility] MARTHA GRIFFIN MD March 21, 2019 12:38
--- NOTE | 2019-03-21 13:15 | DS ---
DATE OF DISCHARGE: 03/21/2019 HOSPITAL SUMMARY: A 53-year-old white female with longstanding COPD and chronic tobacco abuse, came in with acute exacerbation. Chest x-ray was clear. Sputum culture had no specific growth with moderate white cells, bacteria seen and blood cultures had no growth. CBC, chemistry profile, and TSH were unremarkable and urine drug screen was negative. She was given IV Solu-Medrol, oral doxycycline and oxygen and has done well and made good progress. She desaturated at rest and on a 6-minute walk and will need 2 liters of nasal O2 at rest and 4 liters with exercise and prescriptions will be written as well as one for home nebulizer. FINAL DIAGNOSES: 1. Chronic obstructive pulmonary disease with acute exacerbation. 2. Acute hypoxic respiratory failure. 3. Chronic hypoxia secondary to chronic obstructive pulmonary disease and chronic tobacco abuse. OPERATIONS, PROCEDURES and COMPLICATIONS: None. CONSULTATIONS: Dr. Lomeli and Dr. Milan. DISPOSITION: Three more days of doxycycline, taper prednisone over the next 5 days. She will resume her Symbicort and Incruse inhalers and will have DuoNeb to use for nebulizer q.i.d. p.r.n. Home oxygen written as well. Rest of meds remain the same. PROGNOSIS: Poor. She does not quit smoking. SUZY DUMONT MD DR: NOLBERTO/nts JOB#: [id number] / [id number]
--- NOTE | 2019-03-21 13:20 | NUR ---
Patient discharged from hospital via wheelchair to private vehicle/home, in stable condition with portable oxygen. Per Rn Care Transition, Nebulizer will be delivered to the house. Prescriptions go to the pharmacy.
== END 2019-03-21 13:20 | disposition home or self-care (01) | DRG 189 ==
LOC: ER 15:02 → 5 NORTH 18:05
PROVIDERS: ADMIT Family Medicine; ATTEND Family Medicine
DX: J96.21 Acute and chronic respiratory failure with hypoxia (principal); J44.1 Chronic obstructive pulmonary disease with (acute) exacerbation; E78.00 Pure hypercholesterolemia, unspecified; E78.5 Hyperlipidemia, unspecified; F17.200 Nicotine dependence, unspecified, uncomplicated; I10 Essential (primary) hypertension; R62.50 Unspecified lack of expected normal physiological development in childhood
CPT/HCPCS: 36415; 71045; 80048; 80053; 80307; 82553; 83605; 83735; 83880; 84443; 84484; 85007; 85025; 87040; 87070; 87205; 93005; 94618; 94640; 94760; 96374; J1644; J2920; J2930; J7512; J7620; 99285-25

== ENCOUNTER → 2019-05-23 | Outpatient (CLI) | payer OTHER, MEDICAID ==
--- NOTE | 2019-05-23 13:57 | KCIC ---
PQRS Compliance statement: One or more of the following individualized dose reduction techniques were utilized for this examination: 1. Automated exposure control. 2. Adjustment of the mA and/or kV according to patient size. 3. Use of iterative reconstruction technique. Indication:Smoker for 30-40 years. Lung cancer screening. TECHNIQUE: Low-dose CT chest without IV contrast with multiplanar reformats. COMPARISON: 06/05/2018. FINDINGS: Heart is normal in size. No pericardial or pleural effusion. Clear neck base. No enlarged axillary, mediastinal adenopathy. Evaluation of hilar lymphadenopathy is limited due to lack of IV contrast. Stable subpleural 2 mm nodule in the anterior right upper lobe (series 6 image 68). Stable centrilobular nodules in the right lower lobe. Mucous plugging is seen in couple of bronchitis in the right lower lobe, stable. Noncontrast appearance of the visualized sections through the liver, spleen, gallbladder, pancreas, adrenals and kidneys within normal limits. No suspicious bony lesion. IMPRESSION: Stable right lung nodules (2-3 mm). Lung-RADS category 2: Benign appearance or behavior. Follow-up low-dose CT in 12 months recommended. Electronically signed by: Alexis Ayala DO (05/23/2019 1:54 PM) [facility]
== END | disposition home or self-care (01) ==
LOC: KCIC CT 13:14
PROVIDERS: ATTEND Physician Assistant Medical
DX: Z12.2 Encounter for screening for malignant neoplasm of respiratory organs (principal); R91.8 Other nonspecific abnormal finding of lung field; J40 Bronchitis, not specified as acute or chronic; J44.9 Chronic obstructive pulmonary disease, unspecified; F17.218 Nicotine dependence, cigarettes, with other nicotine-induced disorders
CPT/HCPCS: G0297

== ENCOUNTER → 2020-04-15 | Outpatient (CLI) | payer MEDICARE, MEDICAID ==
[~2020-04-15] MED LIST changes: -OMEP20CA10 PO; +OMEP20CA16 PO
--- NOTE | 2020-04-15 19:11 | KCIC ---
Bilateral digital screening mammograms: Reason for examination: Routine screening. Comparison is made to previous study dated 04/11/2012. Interpretation was made with the benefit of CAD. The skin and nipples show no abnormalities. No abnormal axillary lymph nodes are seen. The breast parenchyma shows scattered fibroglandular density. (Breast density: Category B.) There is a small parenchymal density seen centrally on the right oblique view only. This probably represents superimposed tissue but recommend further evaluation with coned compression view in lateral projection with possible follow-up ultrasound. There are no other dominant masses, suspicious calcifications or architectural distortions. Benign calcification is seen in the right breast. Impression: Small nodular parenchymal density seen centrally in the right breast on oblique view only. This may represent superimposed tissues but recommend further evaluation with coned compression lateral view and possible follow-up ultrasound. BI-RADS Category 0: Incomplete. Needs additional imaging evaluation "Our facility is accredited by the [employer] Mammography Program." This patient's information has been entered into a reminder system for the patient to be notified with the results of her examination and a target date for the next mammogram. Electronically signed by: Alice Cohen MD (04/15/2020 7:08 PM) [id number]
== END | disposition home or self-care (01) ==
LOC: KCIC MAMMO 13:50
PROVIDERS: ATTEND Family Medicine
DX: Z12.31 Encounter for screening mammogram for malignant neoplasm of breast (principal); N64.89 Other specified disorders of breast
CPT/HCPCS: 77067

== ENCOUNTER → 2020-05-15 | Outpatient (CLI) | payer MEDICARE, MEDICAID ==
--- NOTE | 2020-05-15 14:52 | RAD ---
EXAM: CT OF THE CHEST WITHOUT CONTRAST. HISTORY: Lung nodule. TECHNIQUE: Computed tomography of the chest was performed without intravenous contrast. One or more of the following individualized dose reduction techniques were utilized for this examination: 1. Automated exposure control. 2. Adjustment of the mA and/or kV according to patient size. 3. Use of iterative reconstruction technique. COMPARISON: 05/23/2019. FINDINGS: Images of the upper abdomen reveal no acute abnormality. Bone windows reveal no suspicious lesions. There are no pathologically enlarged mediastinal or axillary lymph nodes. Calcified mediastinal lymph nodes are likely secondary to old granulomatous disease. There is no pleural or pericardial effusion. The heart is not enlarged. There are atherosclerotic calcifications of the coronary arteries. There is mild to moderate centrilobular emphysema in the apices. A 3 mm groundglass density nodule adjacent to the pleura posteriorly in the left lower lobe on image 164 is unchanged. Small groundglass opacities more anteriorly in the left lower lobe are new but appear postinflammatory. A calcified granuloma is again noted posteriorly in the right lower lobe with adjacent scarring. 2 bronchoceles or adjacent to this site in the right lower lobe. Postinflammatory nodules associated with focal bronchiectasis more laterally in the right lower lobe have decreased in size but not completely resolved. A 2 mm nodule in the right upper lobe on image 69 is stable and likely benign. IMPRESSION: 1. Previously noted sub-4 mm bilateral pulmonary nodules are unchanged for one year and likely benign. 2. Mild bronchiectasis and mucous plugging in the right lower lobe. 3. Minimal groundglass opacities in the left lower lobe indicate mild pneumonitis. 4. Mild to moderate centrilobular and paraseptal emphysema in the apices. Electronically signed by: Aracely Bocanegra MD (05/15/2020 2:49 PM) [id number]
== END ==
LOC: CT 09:08
PROVIDERS: ATTEND Internal Medicine Pulmonary Disease
DX: R91.8 Other nonspecific abnormal finding of lung field (principal); J43.2 Centrilobular emphysema; J18.9 Pneumonia, unspecified organism; J47.9 Bronchiectasis, uncomplicated
CPT/HCPCS: 71250

== ENCOUNTER → 2020-05-21 | Outpatient (CLI) | payer MEDICAID, MEDICARE, OTHER ==
--- NOTE | 2020-05-21 13:28 | KCIC ---
Right digital diagnostic mammogram Reason for examination: Workup of right breast asymmetry Comparison is made to previous study dated mammogram April 15, 2020 and April 11, 2012 Right digital ML spot compression obtained. Interpretation was made with the benefit of CAD. The skin and nipples show no abnormalities. No abnormal lymph nodes are seen. The breast parenchyma is scattered fibroglandular elements. (Breast density: Category B.) There are no suspicious masses, suspicious calcifications or architectural distortions. The questioned asymmetry of the right central breast 4 cm from the nipple on the prior study does not persist with supplemental imaging consistent with an artifact of overlapping glandular tissue. Impression: Negative right mammogram as described above. Recommend routine mammographic screening. BI-RADS Category 1: Negative. "Our facility is accredited by the [employer] Mammography Program." This patient's information has been entered into a reminder system for the patient to be notified with the results of her examination and a target date for the next mammogram. Electronically signed by: Mauro Gamboa MD (05/21/2020 1:25 PM) [id number]
== END | disposition home or self-care (01) ==
LOC: KCIC MAMMO 12:48
PROVIDERS: ATTEND Physician Assistant Medical
DX: R92.2 Inconclusive mammogram (principal)
CPT/HCPCS: 77065

== ENCOUNTER → 2021-05-07 | Outpatient (CLI) | payer MEDICARE, MEDICAID ==
--- NOTE | 2021-05-07 16:20 | RAD ---
EXAM: Chest CT without intravenous contrast. HISTORY: Pulmonary nodule. TECHNIQUE: Computed tomographic images of the chest were obtained without contrast. Multiplanar refor matting was performed. *One or more of the following individualized dose reduction techniques were utilized for this examina tion: 1. Automated exposure control. 2. Adjustment of the mA and/or kV according to patient size. 3. Use of iterative reconstruction technique. COMPARISON: 05/15/2020. 05/23/2019. FINDINGS: There has been slight interval decrease in a 5 mm pleural-based nodule within the posterior left lower lobe. There is a stable 7 mm pleural-based nodule within the medial right lower lobe linda cent calcification likely due to pleural parenchymal scarring. There is stable groundglass and nodula r opacity within the posterior right lower lobe and has been resolution of previously demonstrated gr oundglass and nodular opacity within the posterior left lower lobe. There is right lower lobe bronchial wall thickening, bronchiectasis and mucous plugging, stable in ap pearance. There is emphysema. There is biapical pleural parenchymal scarring. There is medial right m iddle lobe pleural parenchymal scarring. The heart is normal in size. There is calcified atherosclerotic plaque involving the coronary arterie s. There are calcified subcarinal granulomas. There is no lymphadenopathy. There is no acute finding involving the upper abdomen. There is no suspicious osseous lesion. IMPRESSION: 1. Multiple bilateral pulmonary nodules and nodular opacities, the largest of which measures 7 mm wit hin the right lower lobe and is likely due to pleural parenchymal scarring. Follow-up can be performe d in one year to confirm benignity. 2. Stable tiny groundglass nodular opacities within the posterior right lower lobe, likely postinfect ious or postinflammatory in etiology. There has been resolution of previously demonstrated similar ap pearing findings within the left lower lobe. 3. Emphysema. 4. Stable right lower lobe bronchial wall thickening, bronchiectasis and mucous plugging. Electronically signed by: Cherelle Acevedo MD (05/07/2021 4:17 PM) [id number]
== END ==
LOC: CT 14:55
PROVIDERS: ATTEND Internal Medicine Pulmonary Disease
DX: R91.8 Other nonspecific abnormal finding of lung field (principal); T17.890A Other foreign object in other parts of respiratory tract causing asphyxiation, initial encounter; J43.9 Emphysema, unspecified; J47.9 Bronchiectasis, uncomplicated; J98.4 Other disorders of lung; I25.10 Atherosclerotic heart disease of native coronary artery without angina pectoris; X58.XXXA Exposure to other specified factors, initial encounter; Y93.89 Activity, other specified; Y92.89 Other specified places as the place of occurrence of the external cause; Y99.8 Other external cause status
CPT/HCPCS: 71250